=== PATIENT | female | born 1960 | race Caucasian/White ===

== ENCOUNTER 2016-09-27 17:17 | Emergency (ER) | payer OTHER ==
[~2016-09-27] VITALS: Ht 157.5 cm; Wt 78.0 kg
--- NOTE | 2016-09-27 17:35 | NUR ---
PATIENT BIB SELF C/O LEFT UPPER EXTREMITY PAIN, S/P FALL. UNABLE TO MOVE LEFT ARM. STATING 8/10 PAIN. PATIENT IS A/OX 4. BREATHING EVEN AND UNLABORED ON ROOM AIR. NO SOB. SAFETY AND COMFORT MEASURES IN PLACE. AWAITING MD ORDERS.
[2016-09-27] MEDS ORDERED: IBUPROFEN 600 MG TABLET PO STA (17:41)
[2016-09-27] MEDS ORDERED: IBUPROFEN 600 MG TABLET PO ONE (17:43)
--- NOTE | 2016-09-27 17:48 | NUR ---
MEDICATED PATIENT PER MD ORDERS.
--- NOTE | 2016-09-27 17:55 | NUR ---
XR TECH AT BEDSIDE
--- NOTE | 2016-09-27 19:20 | NUR ---
PT IS REC'ING AN ULNAR GUTTER ORTHO GLASS SPLINT TO THE LUE.
--- NOTE | 2016-09-27 19:21 | NUR ---
Patient discharged to home in stable condition. Written and verbal after care instructions given. Patient verbalizes understanding of instruction. PT REC'D A COPY OF IMAGING AND FINDINGS WITH THE DISK. PT'S VSS.
[2016-09-27 19:23] VITALS: BP 141/76
== END 2016-09-27 19:24 | disposition home or self-care (01) ==
LOC: ER 17:18
DX: S52.572A Other intraarticular fracture of lower end of left radius, initial encounter for closed fracture (principal); F32.9 Major depressive disorder, single episode, unspecified; I10 Essential (primary) hypertension; W01.0XXA Fall on same level from slipping, tripping and stumbling without subsequent striking against object, initial encounter; Y92.89 Other specified places as the place of occurrence of the external cause; Y93.89 Activity, other specified; Y99.8 Other external cause status
CPT/HCPCS: 73110; A4606; Z7610